=== PATIENT | male | born 1945 | race Caucasian/White ===

== ENCOUNTER 2016-08-20 19:07 | Emergency (ER) | payer MEDICARE, BC ==
--- NOTE | 2016-08-21 19:04 | ER ---
ADMIT: 08/20/2016 RM/LOC: [facility] MR#: [id number] [id number] [address] [place] [address] Emergency Room Report SEX: M AGE: 71 : 1945 DATE: 08/20/2016 The patient is a 71-year-old male, with previous left retinal tear due to thumb in the eye and recent amaurosis fugax bilaterally and in the left eye. Has had carotid Dopplers, EKG diagnostic blood work, which were negative. No prior history of stroke or family history of stroke. Exam remarkable for nontoxic, afebrile male with complete return of vision, no visual field deficits. Funduscopic exam unremarkable. CT head, negative. Normal CBC, CRP, sedimentation rate, calcium slightly decreased at 83. Recommended aspirin load 324 mg tonight, then 81 mg daily thereafter; clopidogrel 300 mg load and 75 mg daily. Follow up with local physician in [place] for further vascular studies and to rule out cranial arteritis. Patrick Dunne MD/ juan a JOB #: [id number] CC: Piyush Cornejo MD, Attending Physician MISBAH Jorge, Family Physician Marissa Cagle MD
== END 2016-08-20 21:40 | disposition home or self-care (01) ==
LOC: ER 19:07
DX: G45.3 Amaurosis fugax (principal); I10 Essential (primary) hypertension; Z88.8 Allergy status to other drugs, medicaments and biological substances; Z79.899 Other long term (current) drug therapy